=== PATIENT | female | born 1990 | race Caucasian/White ===

== ENCOUNTER 2019-07-15 18:57 | Inpatient (IN) | payer OTHER, SELFPAY ==
[2019-07-15] VITALS (14 sets, daily range): BP systolic 109–161; BP diastolic 40–95; PULSE 83–107; TEMP 36.9; BMI 54.9
--- NOTE | 2019-07-15 18:57 | LDADM ---
This patient, Adelaide Jauregui, was admitted to Labor/Delivery/Recovery 106 on 07/15/19 at 18:57. Plans for labor, pain management and were discussed with patient. Patient/family oriented to hospital policies and general routines including ID bracelet, bed and alarms, visiting hours, pain management, procedures, bathroom and other care routines, personal items, smoking policy, room service/diet and guest tray routines, infant security routines, and visiting hours. Patient/Family are encouraged to report perceived risks to care and to ask questions if they do not understand what they are told or what they should do. See OBIX for further documentation.
[2019-07-15 20:10] LABS: Basophils Absolute Auto 0.1 K/mm3 (0.0-0.1); Basophils Percent Auto 0.4 % (0.2-1.2); Eosinophils Absolute Auto 0.1 K/mm3 (0-0.3); Hematocrit 34.1 % (37.0-47.0); Hemoglobin 11.3 g/dL (12.0-15.0); Immature Granulocyte Percent A 0.7 % (0-0.5); Lymphocytes Absolute Auto 2.38 K/mm3 (0.9-3.2); Lymphocytes Percent Auto 17.6 % (18.3-44.2); Mean Corpuscular HGB Conc 33.1 g/dl (32-36); Mean Corpuscular Hemoglobin 27.3 pg (26-34); Mean Corpuscular Volume 82.4 fl (80-100); Mean Platelet Volume 9.3 fl (7.4-10.4); Monocytes Absolute Auto 1.2 K/mm3 (0.1-0.6); Neutrophils Absolute Auto 9.6 K/mm3 (1.3-6.7); Neutrophils Percent Auto 71.3 % (45.5-73.1); Platelet Count Result 220 k/mm3 (150-375); Red Blood Count 4.14 M/mm3 (4.2-5.4); Red Cell Distribution Width 13.9 % (11.5-14.5); White Blood Count 13.5 K/mm3 (4.5-10.0)
[2019-07-15] MEDS: LACTATED RINGERS 1,000 ML 125 ML IV CONT (20:21)
[2019-07-15] MEDS: DINOPROSTONE 10 MG VAG INSERT VAGINAL (20:22)
[2019-07-15] MEDS: AMPICILLIN 2 GM/NS 100 ML 2 GM/100 ML BAG IVPB (20:22)
[2019-07-15 20:54] LABS: Alanine Aminotransferase 18 U/L (4-35); Albumin Level 3.5 g/dL (3.5-5.1); Alkaline Phosphatase 118 U/L (38-126); Aspartate Amino Transferase 22 U/L (14-36); Bilirubin,Total 0.2 mg/dL (0.2-1.3); Blood Urea Nitrogen 6 mg/dL (7-17); Calcium 8.9 mg/dL (8.4-10.2); Carbon Dioxide 21 mmol/L (22-30); Chloride 103 mmol/L (98-107); Estimated CRCL calculation 202 ml/min; Estimated Glomerular Filt Rate > 60; Glucose 96 mg/dL (65-105); Potassium 3.5 mmol/L (3.4-5.0); Sodium 136 mmol/L (137-145)
[2019-07-15 21:03] LABS: HIV 1/2 Ab P24 Ag Result Negative (Negative)
[2019-07-16] VITALS (144 sets, daily range): BP systolic 100–162; BP diastolic 51–109; PULSE 73–141; TEMP 36.1–36.8; O2SAT 91–100
[2019-07-16] MEDS: AMPICILLIN 1 GM/NS 50 ML 1 GM/50 ML BAG IVPB ×6 (00:24→19:49)
[2019-07-16 09:02] LABS: Rapid Plasma Reagin Non-Reactive (NonReactive)
--- NOTE | 2019-07-16 10:12 | WPDOBADMIT ---
Obstetrics - Admit Note Admission Note: record reviewed. No pertinent additions to the history and/or any subsequent changes in the physical findings that are not consistent with the expected course of the were found. Arom FSE place without difficulty 1-/ /-2 vertex Additions to the history and/or subsequent changes in the physical findings follow. None.
--- NOTE | 2019-07-16 10:45 | WPDANESEPP ---
Anes - Eval Pre Procedure Procedure: labor epidural Date/Time: 07/16/19 10:45 Surgeon: elise Pre Op Diagnosis: Induction of labor Patient Data Age: 28 Gender: F Height: 1.77 m Weight: 171.2 kg Last Vital Signs Temp 36.2 C L 07/16/19 09:54 Pulse 86 07/16/19 10:31 BP 140/89 07/16/19 10:31 Allergies Allergy/AdvReac Type Severity Reaction Status Date / Time Sulfa (Sulfonamide Allergy Mild HIVES Verified 06/26/19 13:33 Antibiotics) Home Medications Medication Instructions Recorded Confirmed Type PNV cmb#95-ferrous fumarate-FA 1 tablet PO DAILY 06/26/19 07/15/19 History [] aspirin [Adult Low Dose Aspirin] 81 mg PO DAILY 06/26/19 07/15/19 History cholecalciferol (vitamin D3) See Rx Instructions .ROUTE .COMPLEX 06/26/19 07/15/19 History [Vitamin D3] Laboratory Tests 07/15/19 07/15/19 07/15/19 20:01 20:01 20:01 WBC 13.5 K/mm3 H K/mm3 (4.5-10.0) RBC 4.14 M/mm3 L M/mm3 (4.2-5.4) Hgb 11.3 g/dL L g/dL (12.0-15.0) Hct 34.1 % L % (37.0-47.0) MCV 82.4 fl fl (80-100) MCH 27.3 pg pg (26-34) MCHC 33.1 g/dl g/dl (32-36) RDW 13.9 % % (11.5-14.5) Plt Count 220 k/mm3 k/mm3 (150-375) MPV 9.3 fl fl (7.4-10.4) Immature Gran % (Auto) 0.7 % H % (0-0.5) Neut % (Auto) 71.3 % % (45.5-73.1) Lymph % (Auto) 17.6 % L % (18.3-44.2) Davis % (Auto) 9.0 % H % (2.6-8.5) Eos % (Auto) 1.0 % % (0-4.4) Baso % (Auto) 0.4 % % (0.2-1.2) Lymph # (Auto) 2.38 K/mm3 K/mm3 (0.9-3.2) Davis # (Auto) 1.2 K/mm3 H K/mm3 (0.1-0.6) Eos # (Auto) 0.1 K/mm3 K/mm3 (0-0.3) Baso # (Auto) 0.1 K/mm3 K/mm3 (0.0-0.1) Abs Immat Gran (auto) 0.10 K/mm3 H K/mm3 (0.00-0.031) Absolute Neuts (auto) 9.6 K/mm3 H K/mm3 (1.3-6.7) Absolute Nucleated RBC 0.0 K/mm3 K/mm3 (0.0-0.012) Nucleated RBC % 0.0 % % (0.0-0.2) Sodium Potassium Chloride Carbon Dioxide BUN Creatinine Estim Creat Clear Calc Estimated GFR Glucose Uric Acid Calcium Total Bilirubin AST ALT Alkaline Phosphatase Total Protein Albumin RPR Non-reactive (NonReactive) HIV 1&2 Ab/P24 Ag 4thGn Negative (Negative) Blood Type Antibody Screen 07/15/19 07/15/19 20:01 20:31 WBC RBC Hgb Hct MCV MCH MCHC RDW Plt Count MPV Immature Gran % (Auto) Neut % (Auto) Lymph % (Auto) Davis % (Auto) Eos % (Auto) Baso % (Auto) Lymph # (Auto) Davis # (Auto) Eos # (Auto) Baso # (Auto) Abs Immat Gran (auto) Absolute Neuts (auto) Absolute Nucleated RBC Nucleated RBC % Sodium 136 mmol/L L mmol/L (137-145) Potassium 3.5 mmol/L mmol/L (3.4-5.0) Chloride 103 mmol/L mmol/L (98-107) Carbon Dioxide 21 mmol/L L mmol/L (22-30) BUN 6 mg/dL L mg/dL (7-17) Creatinine 0.60 mg/dL L mg/dL (0.7-1.0) Estim Creat Clear Calc 202 ml/min ml/min Estimated GFR > 60 (59 - ) Glucose 96 mg/dL mg/dL (65-105) Uric Acid 4.0 mg/dL mg/dL (2.5-7.5) Calcium 8.9 mg/dL mg/dL (8.4-10.2) Total Bilirubin 0.2 mg/dL mg/dL (0.2-1.3) AST 22 U/L U/L (14-36) ALT 18 U/L U/L (4-35) Alkaline Phosphatase 118 U/L U/L (38-126) Total Protein 7.0 g/dL g/dL (6.3-8.2) Albumin 3.5 g/dL g/dL (3.5-5.1) RPR HIV 1&2 Ab/P24 Ag 4th Blood Typ
[2019-07-16] MEDS: LACTATED RINGERS 1,000 ML 125 ML IV CONT ×3 (16:11→23:00)
[2019-07-17] VITALS (259 sets, daily range): BP systolic 100–151; BP diastolic 45–99; PULSE 73–138; RESP 12–25; TEMP 36.3–37.4; O2SAT 94–100
[2019-07-17] MEDS: AMPICILLIN 1 GM/NS 50 ML 1 GM/50 ML BAG IVPB ×4 (04:00→11:56)
--- NOTE | 2019-07-17 09:11 | PM.OBPNVD ---
OB - PN: Subj Subjective Date/time seen: 07/17/19 09:11 Doing okay this am reviewed labor so far. desires to continue. OB - PN: Obj Data Labs CBC & Chem 7: 07/15/19 20:01 07/15/19 20:31 OB - PN A/P Time Spent With Patient Time: Total time spent is greater than 50% in coordination of care (as documented) at patient's floor/unit and/or counseling patient:
[2019-07-17] MEDS: LACTATED RINGERS 1,000 ML 125 ML IV CONT (10:09)
--- NOTE | 2019-07-17 14:00 | PM.IMHP ---
H&P: HPI History of Present Illness Chief complaint: Induction of labor Narrative: Adelaide Jauregui is a 28 year old female @ 39 weeks IOL.. She presented for a cervidil and pitocin. Patient rogression to 6 cm after 36 hours with adequate contraction pattern. Review of Systems Review of Systems: All systems reviewed & are unremarkable except as noted in HPI and below PMFSH Past Medical History Medical History Scoliosis Super obesity Family History Family History Father Depression Hypertension Grandparent Breast cancer Social History Social History Smoking status: Never smoker Substance use: never Spiritual care concerns: No Meds Home Medications and Allergies Home Medications Medication Instructions Recorded Confirmed Type PNV cmb#95-ferrous fumarate-FA 1 tablet PO DAILY 06/26/19 07/15/19 History [] aspirin [Adult Low Dose Aspirin] 81 mg PO DAILY 06/26/19 07/15/19 History cholecalciferol (vitamin D3) See Rx Instructions .ROUTE .COMPLEX 06/26/19 07/15/19 History [Vitamin D3] Allergies Allergy/AdvReac Type Severity Reaction Status Date / Time Sulfa (Sulfonamide Allergy Mild HIVES Verified 06/26/19 13:33 Antibiotics) Vital Signs Vital Signs - 24 hr 07/16/19 14:01 07/16/19 14:31 07/16/19 15:01 Temperature Pulse Rate 86 79 91 Blood Pressure 146/90 H 148/84 H 148/85 H Pulse Oximetry 07/16/19 15:31 07/16/19 15:56 07/16/19 16:01 Temperature 36.6 C Pulse Rate 92 96 Blood Pressure 138/82 148/91 H Pulse Oximetry 100 100 07/16/19 16:06 07/16/19 16:11 07/16/19 16:16 Temperature Pulse Rate Blood Pressure Pulse Oximetry 99 100 100 07/16/19 16:21 07/16/19 16:26 07/16/19 16:31 Temperature Pulse Rate 95 Blood Pressure 140/93 H Pulse Oximetry 100 99 99 07/16/19 16:36 07/16/19 16:41 07/16/19 16:46 Temperature Pulse Rate Blood Pressure Pulse Oximetry 99 99 99 07/16/19 16:51 07/16/19 16:56 07/16/19 17:01 Temperature Pulse Rate 85 Blood Pressure 146/95 H Pulse Oximetry 100 98 100 07/16/19 17:11 07/16/19 17:16 07/16/19 17:21 Temperature Pulse Rate Blood Pressure Pulse Oximetry 100 99 100 07/16/19 17:26 07/16/19 17:31 07/16/19 17:36 Temperature Pulse Rate 89 Blood Pressure 147/81 H Pulse Oximetry 100 100 100 07/16/19 17:41 07/16/19 17:46 07/16/19 17:51 Temperature Pulse Rate Blood Pressure Pulse Oximetry 100 99 99 07/16/19 17:56 07/16/19 18:01 07/16/19 18:06 Temperature Pulse Rate 96 Blood Pressure 125/80 Pulse Oximetry 100 100 100 07/16/19 18:11 07/16/19 18:12 07/16/19 18:16 Temperature 36.8 C Pulse Rate Blood Pressure Pulse Oximetry 100 100 07/16/19 18:21 07/16/19 18:24 07/16/19 18:26 Temperature Pulse Rate 111 H 112 H Blood Pressure 145/83 H 162/81 H Pulse Oximetry 100 100 07/16/19 18:28 07/16/19 18:31 07/16/19 18:32 Temperature Pulse Rate 105 H 93 Blood Pressure 153/79 H 118/75 Pulse Oximetry 99 07/16/19 18:34 07/16/19 18:36 07/16/19 18:37 Temperature Pulse Rate 88 89 Blood Pressure 130/80 136/76 Pulse Oximetry 100 07/16/19 18:38 07/16/19 18:40 07/16/19 18:43 Temperature Pulse Rate 92 89 Blood Pressure 130/66 126/65 Pulse Oximetry 100 100 07/16/19 18:46 07/16/19 18:48 07/16/19 18:49 Temperature Pulse Rate 90 92 Blood Pressure 128/68 129/70 Pulse Oximetry 100 07/16/19 18:52 07/16/19 18:53 07/16/19 18:55 Temperature Pulse Rate 102 H 95 Blood Pressure 126/68 131/83 Pulse Oximetry 100 07/16/19 18:58 07/16/19 19:03 07/16/19 19:08 Temperature Pulse Rate 109 H Blood Pressure 131/109 H Pulse Oximetry 99 100 100 07/16/19 19:13 07/16/19 19:16 07/16/19
--- NOTE | 2019-07-17 14:52 | PM.OBPRVD ---
OB - Delivery Note Procedure Delivery date: 07/17/19 Procedure: primary ltcs Intrapartal events: Prolonged Labor > 20 hours Induction method: AROM and per pitocin protocol Delivery monitor: external FHT, external uterine, internal FHT and internal uterine Route of delivery: Estimated blood loss (mL): 480 Anesthesia type: Epidural Disposition: floor [place] Baby Date of : 07/17/19 Time of : 14:22 Weeks of gestation at delivery: 39 Infant gender: Female Weight (pounds): 6 Weight (ounces): 12 presentation: vertex position: Right Occiput Posterior Placenta delivery description: Spontaneous cord vessel description: 3 Vessels and Clamped/Cut score one minute: 9 score five minutes: 9
--- NOTE | 2019-07-17 16:46 | OP_ITS ---
DATE OF PROCEDURE: 07/17/2019 PREOPERATIVE DIAGNOSIS: Arrest of descent. POSTOPERATIVE DIAGNOSIS: Arrest of descent. PROCEDURE PERFORMED: Primary low-transverse section. ANESTHESIA: Epidural. ESTIMATED BLOOD LOSS: 180 cc. FINDINGS: Female infant, ROP position, vertex presentation, weight 612, Apgars 9, 9. DESCRIPTION OF PROCEDURE: The patient was placed in a supine position with a leftward tilt, prepared and draped in normal sterile fashion. A Pfannenstiel skin incision made with a scalpel, carried down to the underlying layer of fascia. This fascial incision was then extended bilaterally with Tellez scissors. Superior aspect of the incision was grasped with Jose clamps, elevated off the rectus muscles. Inferior aspect of the incision was grasped with Jose clamps and elevated off the rectus muscles. The rectus muscles were in the midline. Peritoneum was entered bluntly. Bladder blade was inserted. The lower uterine segment was incised in a transverse fashion with a scalpel and carried down to the sac and then small incision was made. The incision was extended bluntly. The head was delivered atraumatically. The cord was clamped and cut. The fetus was handed off to the waiting nurse. Placenta was delivered spontaneously. Cord blood and cord gases were obtained. The uterus was cleared of all clots and debris, and the uterine incision was closed with 0 Monocryl in a running locked fashion. A 2nd layer of the same suture was used to imbricate this incision. The gutters were cleared of all clots and debris. The muscles were examined. Hemostasis noted. The fascia was closed with 0 Vicryl suture. Subcutaneous tissue was irrigated and closed with 3-0 plain gut. Skin was closed with 4-0 Vicryl on a Scott needle. Layer of Dermabond was placed over the incision. Sponge, lap, and needle counts were correct x2. D I MT: Felix
--- NOTE | 2019-07-17 18:15 | PC.NURSE ---
Patient transferred to post room #282 per stretcher. Support person present. Oriented to unit, room, information board, rooming in, admission packet and security measures. Patient verbalizes understanding.
[2019-07-17] MEDS: IBUPROFEN 600 MG TABLET PO (19:15)
[2019-07-17] MEDS: DEXTROSE 5%/0.45% SOD CHL 1,000 ML 125 ML IV CONT (19:30)
[2019-07-18] MEDS: IBUPROFEN 600 MG TABLET PO ×5 (00:45→22:21)
[2019-07-18 03:55] VITALS: BP 134/77; PULSE 95; RESP 12; TEMP 36.1
[2019-07-18 05:43] LABS: Basophils Absolute Auto 0.1 K/mm3 (0.0-0.1); Basophils Percent Auto 0.4 % (0.2-1.2); Eosinophils Absolute Auto 0.1 K/mm3 (0-0.3); Eosinophils Percent Auto 0.6 % (0-4.4); Hematocrit 31.4 % (37.0-47.0); Immature Granulocyte Absolute 0.14 K/mm3 (0.00-0.031); Immature Granulocyte Percent A 0.7 % (0-0.5); Lymphocytes Absolute Auto 1.96 K/mm3 (0.9-3.2); Lymphocytes Percent Auto 9.8 % (18.3-44.2); Mean Corpuscular HGB Conc 31.8 g/dl (32-36); Mean Corpuscular Hemoglobin 27.5 pg (26-34); Mean Corpuscular Volume 86.3 fl (80-100); Mean Platelet Volume 9.9 fl (7.4-10.4); Monocytes Absolute Auto 1.9 K/mm3 (0.1-0.6); Monocytes Percent Auto 9.5 % (2.6-8.5); Neutrophils Absolute Auto 15.8 K/mm3 (1.3-6.7); Platelet Count Result 201 k/mm3 (150-375); Red Blood Count 3.64 M/mm3 (4.2-5.4); Red Cell Distribution Width 14.5 % (11.5-14.5)
[2019-07-18] MEDS: DOCUSATE SODIUM 100 MG CAPSULE PO ×3 (07:28→15:23)
[2019-07-18] MEDS: MULTIVIT/MIN/PREN/FOL AC/IRON TABLET 1 TAB PO ×2 (07:28→08:46)
[2019-07-18] MEDS: LANOLIN (LANSINOH) 7.5 GM CREAM 1 APPLIC TOPICAL (07:29)
[2019-07-18] MEDS: SIMETHICONE 80 MG TAB.CHEW PO ×2 (07:29→15:25)
[2019-07-18 08:00] VITALS: BP 130/76; PULSE 100; PULSE 76; RESP 18; TEMP 36.4; O2SAT 100
--- NOTE | 2019-07-18 08:56 | WPDANLDPN2 ---
Anes-Prog Note L&D Date/Time: 07/18/19 08:56 Comfortable throughout: labor and delivery Neuraxial method: epidural Epidural/Spinal procedure site: clean & non-tender Neuro status: Neuro function grossly intact. Cardiovascular status: normal Respiratory status: normal Airway patency: baseline Mental status: baseline Post-Op hydration status: normal Vital Signs: Last Vital Signs Temp 36.1 C L 07/18/19 03:55 Pulse 95 07/18/19 03:55 Resp 12 07/18/19 03:55 BP 134/77 07/18/19 03:55 Pulse Ox 98 07/17/19 20:00 I/O: Intake & Output 07/17/19 07/18/19 07/18/19 23:59 07:59 15:59 Intake Total 1150 1825 Output Total 1200 Balance 1150 625 Post-procedural complaints: none Patient feedback: Patient satisfied with anesthetic care.
--- NOTE | 2019-07-18 08:56 | WPDANLDNPN2 ---
Anes-Prog Note L&D-Neuraxial Date/Time: 07/18/19 08:56 Neuraxial medications: epidural PF morphine Opiod-related complaints: none Patient feedback: Patient satisfied with post-operative pain management.
[2019-07-18 12:30] VITALS: BP 110/68; PULSE 82; RESP 18; TEMP 36.7; O2SAT 100
[2019-07-18 20:13] VITALS: BP 138/65; PULSE 122; RESP 15; TEMP 37; O2SAT 99
[2019-07-19] MEDS: SIMETHICONE 80 MG TAB.CHEW PO ×2 (04:43→09:22)
[2019-07-19] MEDS: IBUPROFEN 600 MG TABLET PO ×2 (04:43→13:39)
[2019-07-19 08:00] VITALS: BP 139/80; PULSE 112; RESP 12; RESP 18; TEMP 36.4; O2SAT 100
--- NOTE | 2019-07-19 08:49 | P.PNOB_ITS ---
OB - PN: Subj Subjective Date/time seen: 07/19/19 08:49 Patient comments: no complaints baby status: doing well [place] feeding status: exclusively breast feeding Narrative: wants to go home today OB - PN: Obj Data Labs CBC & Chem 7: 07/18/19 05:05 07/15/19 20:31 OB - PN A/P Plan day: 2 Plan: discharge home Comments: Plans OCP Time Spent With Patient Time: Total time spent is greater than 50% in coordination of care (as documented) at patient's floor/unit and/or counseling patient: Exam : Bimanual exam- vagina & uterus: other (Uterus firm, nt @U) Other: inc c/d/i
[2019-07-19] MEDS: DOCUSATE SODIUM 100 MG CAPSULE PO (09:22)
[2019-07-19] MEDS: MULTIVIT/MIN/PREN/FOL AC/IRON TABLET 1 TAB PO (09:22)
--- NOTE | 2019-07-19 09:35 | PC.NURSE ---
Mother called out for assist with feeding. Mother would like observation of latch. Mother reports she will supplement at times by choice. Observed mother is able to independently latch with appropriate positioning/alignment. Reviewed positioning/alignment in cross cradle, holding breast in U hold and guided asymmetrical latch on. Discussed rational for each. nursed eagerly, with steady draws and frequent swallowing noted. Reviewed signs of a correct latch, effective nursing and suck swallow ratio. was able to maintain latch without discomfort to mother. Demonstrated how to adjust latch more deeply while feeding. Nipple care reviewed. Mother voiced understanding of information shared. Reviewed infant feeding cues, frequencies, duration of feedings, feeding elimination flow sheet, and signs of adequate intake. Mother is feeding as required and waking infant to feed if needed. Infant is currently meeting outcomes for weight, output, jaundice and feeding frequencies. Mother states she feels confident to continue effective at home. Reviewed transition to breast milk, signs of adequate intake, and engorgement/relief. Instructed to call ICP if intake/output less than required. Reviewed regular medications mother is taking. Information provided per [place]. Reviewed community resources on the [facility] website and in the Mom/Baby guide. Information on outpatient services provided. Mother has no further questions at this time.
[2019-07-20 09:39] VITALS: BP 131/85; PULSE 94; RESP 20; TEMP 36.8
--- NOTE | 2019-08-13 09:29 | PM.DS ---
DS: Diagnosis Admitting Diagnosis Admitting Diagnosis: Encounter for supervision of normal , unspecified, third trimester DS: Summary Time Spent with Patient Time attestation: Total time spent providing and/or coordinating discharge services: Exam Const: General: no acute distress GI: GI Palp: Yes Soft to palpation Discharge Plan Discharge Attending physician on discharge: Joanna Muñoz Discharging Clinician: Emeterio Mullins Patient Disposition: Home, Self-Care Activity: may shower, may drive after 2 weeks and pelvic rest Diet: regular Wound Care Instructions: incision open to air Discharge Instructions: Education: Mom and Baby Guide Given to: Mother Follow-Up: Call your delivering provider's office for an appointment to be seen in: 1 Week Mom and baby [facility] come [facility] for the follow-up appointment. Appointment Date/Time: at What to expect at your follow-up visit: Blood Pressure Check Physical Assessment Call [phone] if you are unable to keep your appointment time. BREAST CARE: 1. Wear a snug supportive bra. 2. For engorgement discomfort: Breast Feeding: A. Apply warm moist washcloths B. Express milk as needed to relieve engorgement C. Wear loose clothing Bottle Feeding: A. May apply ice packs 3. For sore nipples: A. Identify correct latch-on B. Apply warm moist washcloths before and after nursing C. Air dry nipples after nursing D. May apply Lansinoh cream to nipples ABDOMINAL INCISION: (if applicable) 1. Allow incision to air dry 2. Do NOT use lotions for powders on your incision 3. When showering, allow soap and water to run over the incision, but do not wash incision EPISIOTOMY/PERINEAL CARE: 1. Until bleeding stops, use your destiny bottle after urinating 2. Change your pad frequently throughout the day 3. No tub baths until seen by your physician - You may shower ACTIVITY: 1. Rest as much as possible. 2. Do not exercise or lift anything heavier than your baby (such as laundry or other children.) 3. Avoid stairs or driving as much as possible. 4. Do not put anything into the vagina. No douching, tampons, or sexual activity until seen by physician. NOTIFY PHYSICIAN IF YOU HAVE ANY QUESTIONS OR IF ANY OF THE FOLLOWING SYMPTOMS OCCUR: 1. If your incision becomes red, swollen, or more painful than what you have experienced in the hospital. 2. If your vaginal bleeding becomes foul smelling. 3. If your vaginal bleeding becomes more heavy than a period or if your bleeding changes from pink to bright red. However, you may pass an occasional walnut-sized clot once or twice for the first week . 4. If you experience a sharp, shooting pain in you calves. 5. If you discover a hard, reddened area on your breast or if you experience flu-like symptoms. DIET: 1. Eat regular, well-balanced meals. 2. Drink plenty of fluids daily. If , drink to thirst. Patient Instructions: Antibiotic Form Stand Alone Forms: General Discharge Information Follow-up/Referrals: Joanan Muñoz MD [Physician] - 1 Week Discharge Medications: New hydrocodone-acetaminophen 5-325 mg Tablet 1 tab PO Q3H PRN (Reason: Moderate Pain (4-6)) Qty: 15 RF: 0 Slynd 4 mg (28) tablet 4 mg PO DAILY 24 Days Qty: 24 RF: 5 Continued cholecalciferol (vitamin D3) [Vitamin D3] 125 mcg (5,000 unit) Tablet See Rx Instructions .ROUTE .COMPLEX RF: 0 Discontinued aspirin [Adult Low Dose Aspirin] 81 mg Tablet,Delayed Release (Dr/Ec) 81 mg PO DAILY RF: 0 PNV cmb#95-ferrous fumarate-FA [] 28 mg iron- 800 mcg Tablet 1 tablet PO DAILY RF: 0 Date of admission: 07/15/19 18:57 Primary Care Provider: PHYSICIAN,SCALE ATTENDANT Admitting Provider: Emeterio Mullins Discharge Date/Time: 07/19/19 14:03 Benton knowles
== END 2019-07-19 14:03 | disposition home or self-care (01) | DRG 788 ==
LOC: ANHOB2 07-19 10:30 → ANHLDR 07-21 11:29 → ANHOB2 07-21 11:29
PROVIDERS: Admitting Provider Obstetrics & Gynecology; Visit Provider Obstetrics & Gynecology Gynecology
PROC: 10D00Z1 Extraction of Products of Conception, Low, Open Approach (ICD-10-PCS; CPT 59514; principal; 2019-07-17 14:00)
DX: O99.824 Streptococcus B carrier state complicating childbirth (principal); Z3A.39 39 weeks gestation of pregnancy; Z37.0 Single live birth; Z23 Encounter for immunization; O32.8XX0 Maternal care for other malpresentation of fetus, not applicable or unspecified; O62.0 Primary inadequate contractions; O32.4XX0 Maternal care for high head at term, not applicable or unspecified
CPT/HCPCS: 36415; 80053; 84550; 85025; 86592; 86703; 86850; 86900; 86901; A9270; G0432; J0131; J0290; J0690; J2274; J2590; J2795; J7120

== ENCOUNTER → 2021-02-28 15:58 | Outpatient (CLI) | payer OTHER, SELFPAY ==
--- NOTE | ~2021-02-28 | US_ITS ---
EXAMINATION: US OB <= 14 weeks fetus DATE: 02/28/2021 16:18 INDICATION: Viability. TECHNIQUE: Real-time transabdominal pelvic ultrasound was performed. COMPARISON: None. FINDINGS: The uterus measures 12.4 x 7.1 x 7.2 cm. There is an intrauterine gestational sac. The crown ru mp length measures 4.3 cm, which correlates with an estimated gestational age of 11 weeks and 1 day(s ) (+/-) 1 week(s) and 0 day(s). heart motion is identified measuring 167 beats per minute (bpm) by M-mode Doppler. The right ovary is not visualized. The left ovary measures 4.7 x 2.9 x 2.7 cm. Th ere is no free fluid in the pelvis. IMPRESSION: 1. Single living intrauterine gestation with estimated date of delivery of 09/18/2021. Reviewed, dictated and finalized at location A. IMPRESSION: 1. Single living intrauterine gestation with estimated date of delivery of 08/25.
== END ==
PROVIDERS: Visit Provider Nurse Practitioner
DX: Z36.89 Encounter for other specified antenatal screening (principal)
CPT/HCPCS: 76801

== ENCOUNTER → 2021-04-12 14:51 | Outpatient (CLI) | payer OTHER, SELFPAY ==
--- NOTE | ~2021-04-12 | US_ITS ---
EXAMINATION: US OB /maternal detail DATE: 04/12/2021 15:25 INDICATION: Assess anatomy during early second trimester TECHNIQUE: Multiple obstetric sonographic images performed. FINDINGS: There is a single living fetus in vertex presentation. The placenta is anterior with caudal margin 3 .0 cm from the internal cervical os. 4.0 x 1.6 x 2.8 cm hypoechoic region along the inferior margin o f the placenta consistent with a small subchorionic hematoma. Subjectively normal amniotic fluid volu me. heart rate of 151 beats per minute. Many of the structures in the anatomic survey are either nonvisualized were poorly visualized d ue to primarily to gestational age. These include the cerebellum, falx, cava septum pellucidum, ciste rna magna, nuchal fold, upper lip and kidneys. The following anatomy was identified as normal: ventricles and choroid plexus Spine Four-chamber heart view. Clear outflow tract views were unable to be obtained. Diaphragm Stomach Bladder 3 vessel cord and cord insertion Bilateral upper and lower extremities including hands and feet The following biometric data were obtained: BPD: 3.6 cm -> 17 weeks 1 days Head circumference: 13.6 cm -> 17 weeks 0 days Abdominal circumference: 11.7 cm -> 17 weeks 3 days Femur length: 2.3 cm -> 17 weeks 0 days These measurements are concordant. Head circumference to abdominal circumference ratio: 1.15 (normal range 1.07-1.29). Estimated weight: 186 g (+/-) 28 g. or 7 oz. (+/-) 1 oz. IMPRESSION: 1. Single living fetus with vertex presentation with heart rate of 151 bpm. 2. Gestational age by current ultrasound of 17 weeks 1 day(s) (+/-) 1 week 1 day(s) which is concor dant and within 1 day of the previously estimated ultrasound estimated date of delivery (JONAS) of 09/18. Estimated weight is 39th percentile by Hadlock criteria when 09/18/2021 is used as the ED D. Please correlate with clinical information or earlier ultrasounds for most accurate JONAS. 3. Incomplete anatomic survey without evident abnormality as detailed above due to stage of dev elopment, still relatively early in the second trimester. Consider repeat survey in 2 weeks. Reviewed, dictated and finalized at location A. RAM ENGAGEMENT DIRECTOR IMPRESSION: 1. Single living fetus with vertex presentation with heart rate of 151 b pm. 2. Gestational age by current ultrasound of 17 weeks 1 day(s) (+/-) 1 week 1 day(s) which is concordant and within 1 day of the previously estimated ultraso und estimated date of delivery (JONAS) of 09/18/2021. Estimated weight is 39 th percentile by Hadlock criteria when 09/18/2021 is used as the JONAS. Please cor relate with clinical information or earlier ultrasounds for most accurate JONAS. 3. Incomplete anatomic survey without evident abnormality as detailed abo ve due to stage of development, still relatively early in the second trimester. Consider repeat survey in 2 weeks.
== END ==
PROVIDERS: Visit Provider Obstetrics & Gynecology Gynecology
DX: Z36.2 Encounter for other antenatal screening follow-up (principal); Z3A.17 17 weeks gestation of pregnancy
CPT/HCPCS: 76805

== ENCOUNTER → 2021-04-30 14:50 | Outpatient (CLI) | payer OTHER, SELFPAY ==
--- NOTE | ~2021-04-30 | US_ITS ---
EXAMINATION: US OB follow up DATE: 04/30/2021 15:45 INDICATION: Incomplete anatomic survey, second trimester TECHNIQUE: Real-time ultrasound of the pelvis was performed. The interpreting radiologist was not pre sent for the study. COMPARISON: 04/12/2021 FINDINGS: There is a single living fetus in breech presentation. The placenta is anterior and 5.8 cm from the internal cervical os. cardiac activity and movement are noted. heart rate is 150 beats per minute (bpm). The amniotic fluid index is subjectively normal. The ventricles, choro id plexus, cerebellum, cisterna magna, nuchal fold, spine, heart outflow tracts, and kidneys appear n ormal. IMPRESSION: 1. Single living fetus in breech presentation. Remainder of the anatomy appears normal. Reviewed, dictated and finalized at location A. LESS WATCHER IMPRESSION: 1. Single living fetus in breech presentation. Remainder of the anatomy a ppears normal.
== END ==
PROVIDERS: Visit Provider Obstetrics & Gynecology
DX: Z36.2 Encounter for other antenatal screening follow-up (principal); Z3A.00 Weeks of gestation of pregnancy not specified
CPT/HCPCS: 76816

== ENCOUNTER 2021-09-10 10:58 | Outpatient (CLI) | payer BC, OTHER, SELFPAY ==
[2021-09-10 11:50] LABS: Hematocrit 35.1 % (37.0-47.0); Hemoglobin 11.3 g/dL (12.0-15.0); Mean Corpuscular HGB Conc 32.2 g/dl (32-36); Mean Platelet Volume 10.1 fl (7.4-10.4); Platelet Count Result 199 k/mm3 (150-375); Red Blood Count 4.18 M/mm3 (4.2-5.4); Red Cell Distribution Width 15.2 % (11.5-14.5); White Blood Count 9.6 K/mm3 (4.5-10.0)
[2021-09-11 08:00] LABS: Rapid Plasma Reagin Non-Reactive (NonReactive)
== END 2021-09-10 10:59 | disposition home or self-care (01) ==
LOC: ANHLAB 11:01
PROVIDERS: Visit Provider Obstetrics & Gynecology Gynecology
DX: Z01.818 Encounter for other preprocedural examination (principal)
CPT/HCPCS: 36415; 85027; 86592; 86850; 86900; 86901

== ENCOUNTER 2021-09-11 04:55 | Inpatient (IN) | payer BC, OTHER, SELFPAY ==
--- NOTE | 2021-08-20 15:45 | PC.NURSE ---
verified with surgery schedule and patient --C/S with tual ligation on 09/11/21 at 0730 Patient given requisition for lab draw on 09/10/21
[2021-09-11] VITALS (54 sets, daily range): BP systolic 117–150; BP diastolic 51–96; PULSE 49–88; RESP 14–18; TEMP 36.2–36.9; O2SAT 78–100; BMI 55.3
--- NOTE | 2021-09-11 05:14 | LDADM ---
This patient, Adelaide Jauregui, was admitted to Labor/Delivery/Recovery 120 on 09/11/21 at 04:55. Plans for labor, pain management and were discussed with patient. Patient/family oriented to hospital policies and general routines including ID bracelet, bed and alarms, visiting hours, pain management, procedures, bathroom and other care routines, personal items, smoking policy, room service/diet and guest tray routines, infant security routines, and visiting hours. Patient/Family are encouraged to report perceived risks to care and to ask questions if they do not understand what they are told or what they should do. See OBIX for further documentation.
[2021-09-11] MEDS: LACTATED RINGERS 1,000 ML 125 ML IV CONT ×2 (05:40→06:07)
--- NOTE | 2021-09-11 06:27 | P.PNAN_ITS ---
Anes - Initial Pre Proc Eval Procedure: Operation Date: 09/11/21 07:30 Proposed Procedures p Repeat Section with Bilateral Tubal Ligation - Joanna Muñoz MD Date/Time: 09/11/21 06:27 Surgeon: Joanna Muñoz MD Pre Op Diagnosis: C/s Patient Data Age: 30 Gender: F Height: 1.75 m Weight: 170 kg Last Vital Signs Temp 36.8 C 09/11/21 05:26 Pulse 79 09/11/21 06:16 Resp 16 09/11/21 05:26 BP 140/87 09/11/21 06:16 Pulse Ox 99 09/11/21 05:24 Allergies Allergy/AdvReac Type Severity Reaction Status Date / Time Sulfa (Sulfonamide Allergy Mild HIVES Verified 08/20/21 15:32 Antibiotics) Home Medications Medication Instructions Recorded Confirmed Type cholecalciferol (vitamin D3) See Rx Instructions .ROUTE .COMPLEX 06/26/19 09/11/21 History [Vitamin D3] Vitamin 1 tablet PO DAILY 09/11/21 09/11/21 History Patient hx anesthesia problems: none Family hx anesthesia problems: none Results Review: All pre-operative results and documents have been reviewed as part of the pre-operative evaluation. [facility] Past Medical History Medical History (Updated 07/17/19 @ 14:04 by Emeterio Mullins MD) Scoliosis Super obesity Family History Family History Father Depression Hypertension Anxiety Grandparent Breast cancer Type 2 diabetes mellitus Social History Social History Smoking status: Never smoker Second hand tobacco smoke exposure: No Substance use: never Spiritual care concerns: No Anes - Eval Final PreProcedure Day of Procedure 09/11/21 06:27 Patient weight: super morbidly obese Heart: regular rate and rhythm Lungs: clear to auscultation and normal air movement Airway: Mallampati scale class II Neurological: alert and oriented Last oral intake: >/= 8 hours ASA classification: III Emergent: no Anesthetic plan: proceed Anesthesia type and monitoring: regional spinal and standard monitoring Results Review: All pre-operative results and documents have been reviewed as part of the pre-operative evaluation. Informed Consent: The patient's anesthetic plan and its attendant risks and benefits were discussed with the patient/family/POA. Questions were solicited and answers provided to the satisfaction of the patient/family/POA.
--- NOTE | 2021-09-11 06:50 | WPDHPUPDATE1 ---
History and Physical Update Update Date/Time: 09/11/21 06:50 History and Physical has been reviewed, including an updated exam of the patient. There are NO changes in the patient's condition. Risks, benefits, and alternatives have been discussed and questions answered. Patient agrees to proceed with procedure.
--- NOTE | 2021-09-11 06:51 | PM.IMHP ---
H&P: HPI History of Present Illness Date/Time: 09/11/21 06:51 Chief Complaint: Repeat and tubal ligation Narrative: patient is a 30-year-old 2 para 1 admitted at 39 weeks for repeat . Patient's has been uncomplicated. Patient also likes to have permanent sterilization via tubal ligation. The risks of tubal failure with increased ectopic were reviewed. The permanent irreversible nature of tubal ligation was also discussed.Patient declines vaginal after attempt. labs O positive, rubella immune, RPR negative, hepatitis-B surface antigen negative, HIV negative, group B strep positive. [facility] Past Medical History Medical History (Updated 09/11/21 @ 06:54 by Joanna Muñoz MD) Scoliosis Super obesity Surgical History Surgical History (Updated 09/11/21 @ 06:54 by Joanna Muñoz MD) H/O knee surgery History of Family History Family History Father Depression Hypertension Anxiety Grandparent Breast cancer Type 2 diabetes mellitus Social History Social History Smoking status: Never smoker Second hand tobacco smoke exposure: No Substance use: never Spiritual care concerns: No Meds Home Medications and Allergies Home Medications Medication Instructions Recorded Confirmed Type cholecalciferol (vitamin D3) See Rx Instructions .ROUTE .COMPLEX 06/26/19 09/11/21 History [Vitamin D3] Vitamin 1 tablet PO DAILY 09/11/21 09/11/21 History Allergies Allergy/AdvReac Type Severity Reaction Status Date / Time Sulfa (Sulfonamide Allergy Mild HIVES Verified 08/20/21 15:32 Antibiotics) Vital Signs Vital Signs - 24 hr 09/11/21 05:24 09/11/21 05:26 09/11/21 05:30 Temperature 98.3 F Pulse Rate 77 82 88 Respiratory Rate 16 Blood Pressure 146/69 H 146/70 H Pulse Oximetry 99 09/11/21 06:01 09/11/21 06:16 09/11/21 06:31 Temperature Pulse Rate 70 79 80 Respiratory Rate Blood Pressure 140/80 140/87 150/85 H Pulse Oximetry Exam Const: General: healthy appearing and alert Orientation/consciousness: patient oriented x3 GI: GI Palp: Yes Soft to palpation, No Tenderness to palpation present (GI) and Yes Other GI palpation findings present ( fundal height 40cm; heart tones 140s) : External Female Exam: normal external appearance Speculum Exam - Vagina: normal appearance of the vagina and normal vaginal discharge Speculum Exam - Cervix: normal appearance of the cervix Bimanual exam- vagina & uterus: uterine size normal and consistency normal Bimanual Exam- Adnexa, other: normal adnexae and No adnexal tenderness Neuro: General: patient oriented x3 Assessment and Plan Assessment and plan (1) 39 weeks gestation of : Code(s): Z3A.39 - 39 weeks gestation of Status: Acute Assessment and Plan: plan to proceed with repeat section and bilateral tubal ligation (2) Encounter for sterilization: Code(s): Z30.2 - Encounter for sterilization Status: Acute (3) History of : Code(s): Z98.891 - History of uterine scar from previous surgery Status: Inactive
[2021-09-11] MEDS: KETOROLAC 30 MG/ML VIAL (*BKC) IV PUSH (08:15)
--- NOTE | 2021-09-11 08:25 | W.PM.PROC2 ---
Procedure Note - Detailed Date of Procedure 09/11/21 Pre-op Diagnosis Intrauterine at 39 weeks previous scheduled repeat requests sterilization Post-op Diagnosis Other ( left tubal cyst; fibroids) Procedure Performed repeat low transverse section and bilateral tubal ligation excision 4cm left complex tubal cyst; excision right tubal fibroid Surgeon Joanna Muñoz MD Anesthesia Spinal Findings normal-appearing ovaries. Left tube with a 4cm complex tubal cyst. Multiple less than 1cm fibroids on the posterior surface of the fundus. 0.5cm fibroid in the right distal tube Description of Procedure the patient was taken to the operating room and placed under anesthesia in the supine position with a leftward tilt. She was prepped and draped in the usual sterile fashion. Pfannenstiel skin incision was made with a scalpel and carried down to the underlying layer of fascia which was nicked in the midline. The incision was extended laterally with Tellez scissors. [facility] was used to tent the fascia which was then dissected off using sharp dissection. The rectus muscles are in the midline with the [place] high in the incision. There is extensive scar tissue taken down with Bovie cautery. The peritoneum was then entered and the incision extended with blunt traction. The bladder blade is placed and the vesicouterine peritoneum tented and entered with Metzenbaum scissors. The incision was extended laterally and the bladder flap created digitally. The lower uterine segment was incised in a transverse fashion with the scalpel and extended laterally using blunt traction. The infant's head was brought up into the incision on the fully delivered while the minister assistant applied fundal pressure and I guided the vertex. The cord was clamped and cut the handed to the waiting nursery nurse. The placenta is removed using manual traction after cord blood and gases were taken. The placenta is intact. The uterus is exteriorized and cleared of all clots and debris. The uterine incision was closed using 0 Monocryl in a running locked fashion with the same suture used to imbricate. The 1 additional yjcgld-na-nyzsc suture was required over the bladder flap on the right as well as 1 additional kkfmkh-[id number] suture approximately 1cm from the right angle. Attention was then turned to the right tube which was grasped with a [place]. There was noted to be a right fibroid at the distal and. The zeppelin clamp was used to cross clamp the distal 2/3 of the tubes incorporating the fibroid. The tube was excised. The pedicle was tied off using 2 sutures of 0 Vicryl. Good hemostasis is noted. Attention is turned to the left tube where a 4cm complex tubal cyst was noted the proximal tube is excised using a Z clamp to cross clamp and excise the tube the pedicles tied off using Hussain stitch of 0 Vicryl. The distal 2/3 of the tube are crossclamped and the cyst is incorporated and excised as well. Pedicles tied off using 0 Vicryl. The peritoneum between the two tubal excisions is closed using 0 Vicryl in a running stitch for hemostasis. Good hemostasis was then noted. Attention was returned to the incision of the uterus and it was noted to be hemostatic. The uterus was returned to the abdomen and all surgical sites are again inspected carefully. All sites are noted to be hemostatic. The fascia was then closed using 0 Vicryl in a running fashion. Subcutaneous tissues were irrigated made hemostatic using Bovie cautery. Skin is closed using 4-0 Vicryl in a subcuticular fashion. Dermaflex was placed over the incision. Sponge, needle, and instrument counts are correct per the OR staff. Patient was taken to recovery in stable condition. Estimated Blood Loss 425 Drains Yes ( Garcia catheter) Pathology Yes ( bilateral tubal segments with right tubal fibroid and left tubal cyst) Complications No immediate compli
[2021-09-11] MEDS: OXYTOCIN 30 UNITS/NS 500 ML 30 UNITS/500 ML BAG 125 UNITS IV CONT (09:07)
[2021-09-11] MEDS: LORATADINE 10 MG TABLET PO (09:15)
--- NOTE | 2021-09-11 12:09 | OBPPTRN ---
1105 Patient transferred to post room #285 via stretcher. Support person present. Oriented to unit, room, information board, rooming in, admission packet and security measures. Patient verbalizes understanding.
[2021-09-11] MEDS: DEXTROSE 5%/0.45% SOD CHL 1,000 ML 125 ML IV CONT (13:17)
[2021-09-12] MEDS: IBUPROFEN 600 MG TABLET PO ×3 (03:41→19:10)
[2021-09-12] MEDS: HYDROcodone/acetaminophen (*CRX) 5-325 MG TABLET 1 TAB PO ×5 (03:41→19:11)
[2021-09-12 03:49] VITALS: BP 158/82; PULSE 76; RESP 18; TEMP 36.4; O2SAT 97
[2021-09-12 05:07] LABS: Basophils Percent Auto 0.3 % (0.2-1.2); Eosinophils Absolute Auto 0.1 K/mm3 (0-0.3); Eosinophils Percent Auto 0.4 % (0-4.4); Hematocrit 32.9 % (37.0-47.0); Hemoglobin 10.5 g/dL (12.0-15.0); Immature Granulocyte Absolute 0.06 K/mm3 (0.00-0.031); Immature Granulocyte Percent A 0.4 % (0-0.5); Lymphocytes Absolute Auto 2.69 K/mm3 (0.9-3.2); Lymphocytes Percent Auto 19.6 % (18.3-44.2); Mean Corpuscular HGB Conc 31.9 g/dl (32-36); Mean Corpuscular Hemoglobin 27.1 pg (26-34); Mean Corpuscular Volume 84.8 fl (80-100); Mean Platelet Volume 10.9 fl (7.4-10.4); Monocytes Absolute Auto 1.2 K/mm3 (0.1-0.6); Neutrophils Absolute Auto 9.7 K/mm3 (1.3-6.7); Neutrophils Percent Auto 70.3 % (45.5-73.1); Platelet Count Result 203 k/mm3 (150-375); Red Blood Count 3.88 M/mm3 (4.2-5.4); Red Cell Distribution Width 15.5 % (11.5-14.5); White Blood Count 13.7 K/mm3 (4.5-10.0)
--- NOTE | 2021-09-12 07:41 | P.PNOB_ITS ---
OB - PN: Subj Subjective Date/time seen: 09/12/21 07:41 Patient comments: no complaints and pain well controlled baby status: nursing well OB - PN: Obj Data Labs CBC & Chem 7: 09/12/21 03:31 Labs: Laboratory Results - last 24 hr 09/12/21 03:31 WBC 13.7 H RBC 3.88 L Hgb 10.5 L Hct 32.9 L MCV 84.8 MCH 27.1 MCHC 31.9 L RDW 15.5 H Plt Count 203 MPV 10.9 H Immature Gran % (Auto) 0.4 Neut % (Auto) 70.3 Lymph % (Auto) 19.6 Christian % (Auto) 9.0 H Eos % (Auto) 0.4 Baso % (Auto) 0.3 Lymph # (Auto) 2.69 Christian # (Auto) 1.2 H Eos # (Auto) 0.1 Baso # (Auto) 0.0 Abs Immat Gran (auto) 0.06 H Absolute Neuts (auto) 9.7 H Absolute Nucleated RBC 0.0 Nucleated RBC % 0.0 OB - PN A/P Assessment and Plan (1) PIH ( induced hypertension): Code(s): O13.9 - Gestational [-induced] hypertension without significant proteinuria, unspecified trimester Status: Acute Assessment and Plan: Elevated BP since delivery. No sx. Good diuresis. Observe. Plan day: 1 Plan: routine care Time Spent With Patient Time: Total time spent is greater than 50% in coordination of care (as documented) at patient's floor/unit and/or counseling patient: Exam Narrative: inc c/d/i : Bimanual exam- vagina & uterus: other (Uterus firm, nt @U)
[2021-09-12 07:50] VITALS: BP 132/68; PULSE 65; RESP 16; TEMP 36.9; O2SAT 99
[2021-09-12] MEDS: MULTIVIT/MIN/PREN/FOL AC/IRON TABLET 1 TAB PO (07:52)
--- NOTE | 2021-09-12 07:53 | WPDANLDPN2 ---
Anes-Prog Note L&D Date/Time: 09/12/21 07:53 Comfortable throughout: section Neuraxial method: spinal Epidural/Spinal procedure site: clean & non-tender Neuro status: Neuro function grossly intact. Cardiovascular status: normal Respiratory status: normal Airway patency: baseline Mental status: baseline Post-Op hydration status: normal Vital Signs: Last Vital Signs Temp 36.4 C L 09/12/21 03:49 Pulse 76 09/12/21 03:49 Resp 18 09/12/21 03:49 BP 158/82 H 09/12/21 03:49 Pulse Ox 97 09/12/21 03:49 Pain score (VAS): 3 I/O: Intake & Output 09/11/21 09/11/21 09/12/21 15:59 23:59 07:59 Intake Total 1280 1400 100 Output Total 775 3400 400 Balance 505 -9538 -300 Post-procedural complaints: none Patient feedback: Patient satisfied with anesthetic care.
--- NOTE | 2021-09-12 07:54 | WPDANLDNPN2 ---
Anes-Prog Note L&D-Neuraxial Date/Time: 09/12/21 07:54 Neuraxial medications: intrathecal PF morphine Opiod-related complaints: none Patient feedback: Patient satisfied with post-operative pain management.
--- NOTE | 2021-09-12 11:22 | PC.NURSE ---
[id number] Introductions were made, then consulted with patient to assess needs related to . Mother led the conversation with her experience feeding her so far managing phototherapy as well. Mother works well with her infant and demonstrates knowledge of . Encouraged understanding of the benefits of skin to skin (unwrapping and placing vertically on her chest), responsive feeding and how to watch for early feeding signs, frequency of feeding on demand about every 8-12 times in 24 hours (every 2-3 hours), milk production, duration of feeding, signs of adequate intake/output and how to record on the feeding sheet. Reviewed positioning tummy to tummy with ear, shoulder, hip alignment, supporting the breast, asymmetrical latch (off-center), and leading with the chin with a big open side gape. Infant latched optimally to the right breast in football position. Education given to mother of how to visualize suck/swallow ratios and drinking at the breast. Infant was able to maintain latch without discomfort to mother. Nipple care reviewed with optimal latch and good positioning. Reviewed good handwashing when or touching the breast/nipples to prevent infection. Resources used to facilitate learning were used with the visual handouts/mom and baby guide. Discussed stimulating to breastfeed instead of sleeping through a feeding. Mother voiced understanding of responsive feedings, stimulating with skin to skin, hand expressed colostrum, touch, talking to to encourage if it has been 2 -3 hours since the start of the last , to call if does not latch or there is discomfort with . Reported to the primary RN.
[2021-09-12] MEDS: SIMETHICONE 80 MG TAB.CHEW PO (14:22)
[2021-09-12] MEDS: DOCUSATE SODIUM 100 MG CAPSULE PO (16:14)
[2021-09-12 18:50] VITALS: BP 149/79; PULSE 72; RESP 18; TEMP 37.2
[2021-09-12] MEDS: LANOLIN (LANSINOH) 7.5 GM CREAM 1 APPLIC TOPICAL (19:10)
[2021-09-12 20:30] VITALS: BP 142/81; PULSE 72
[2021-09-12] MEDS: HYDROcodone/acetaminophen (*CRX) 10-325 MG TABLET 1 TAB PO (22:39)
[2021-09-13] MEDS: IBUPROFEN 600 MG TABLET PO ×2 (01:40→09:06)
[2021-09-13] MEDS: HYDROcodone/acetaminophen (*CRX) 5-325 MG TABLET 1 TAB PO ×3 (01:41→11:32)
--- NOTE | 2021-09-13 07:18 | P.PNOB_ITS ---
OB - PN: Subj Subjective Date/time seen: 09/13/21 07:18 Interval history: No PIH sx Patient comments: no complaints and pain well controlled [place] baby status: doing well OB - PN: Obj Data Labs CBC & Chem 7: 09/12/21 03:31 OB - PN A/P Assessment and Plan (1) PIH ( induced hypertension): Code(s): O13.9 - Gestational [-induced] hypertension without significant proteinuria, unspecified trimester Status: Acute Assessment and Plan: No Sx. BP stable. Follow up 1 wk Plan day: 2 Plan: routine care, discharge home and other (follow up 1 wk) Time Spent With Patient Time: Total time spent is greater than 50% in coordination of care (as documented) at patient's floor/unit and/or counseling patient: Exam Narrative: inc c/d/i : Bimanual exam- vagina & uterus: other (Uterus firm, nt @U)
--- NOTE | 2021-09-13 07:19 | PM.OBDSVD ---
DS: Admitting Diagnosis Discharge Date 09/13/21 Admitting Diagnosis IUP 39 wks for repeat csection and tubal ligation DS: Discharge Diagnosis Discharge Diagnosis (1) delivery delivered: Code(s): O82 - Encounter for delivery without indication Status: Acute (2) PIH ( induced hypertension): Code(s): O13.9 - Gestational [-induced] hypertension without significant proteinuria, unspecified trimester Status: Acute (3) S/P tubal ligation: Code(s): Z98.51 - Tubal ligation status Status: Acute OB - DS: Summary OB Procedures : Ultrasound OB Procedures Intrapartum: low cervical, transverse and Tubal ligation (and tubal cyst excision; tubal fibroid excision) OB Procedures: : None Peripartum Data Delivery Method: Section Procedures: Procedures Operation Date: 09/11/21 07:30 Actual Procedure Side Surgeon p Repeat Section with Bilateral Tubal Ligation Bilateral Joanna Muñoz MD Status at Discharge Functional status at discharge: independent ambulation Overall status at discharge: patient is progressing back to baseline Time Spent with Patient Time attestation: Total time spent providing and/or coordinating discharge services: DS: Data Data Completed and Pending Pending studies at discharge: Pending at discharge 09/11/21 07:55 Surgical [PTH] Routine Surgical [PTH] Routine Discharge Plan Discharge Attending physician on discharge: Joanna Muñoz Discharging Clinician: Joanna Muñoz Anticipated Discharge Date/Time: 09/13/21 07:21 Patient Disposition: Home, Self-Care Activity: may shower, may drive after 2 weeks and pelvic rest Diet: regular Wound Care Instructions: incision open to air Patient Instructions: Antibiotic Form Stand Alone Forms: General Discharge Information Follow-up/Referrals: Joanna Muñoz MD [Physician] - 1 Week (and 6 wk) Discharge Medications: New hydrocodone-acetaminophen 5-325 mg Tablet 1 tablet PO Q4H PRN (Reason: Moderate Pain (4-6)) Qty: 30 RF: 0 Continued cholecalciferol (vitamin D3) [Vitamin D3] 125 mcg (5,000 unit) Tablet See Rx Instructions .ROUTE .COMPLEX RF: 0 Vitamin 1 tablet 1 tablet PO DAILY RF: 0 Date of admission: 09/11/21 04:55 Primary Care Provider: PHYSICIAN,DEBT RECOVERY OFFICER Admitting Provider: Joanna Muñoz Attending physician on admission: Joanna Muñoz Condition: Stable
[2021-09-13 07:50] VITALS: BP 135/77; PULSE 64; RESP 18; TEMP 36.6; O2SAT 100
[2021-09-13] MEDS: DOCUSATE SODIUM 100 MG CAPSULE PO (09:06)
[2021-09-13] MEDS: MULTIVIT/MIN/PREN/FOL AC/IRON TABLET 1 TAB PO (09:06)
--- NOTE | 2021-09-13 14:10 | PC.NURSE ---
[id number] Consulted with patient to assess needs related to . Mother led conversation with her experience with feeding baby so far. Mother works well with her with encouragement. Reviewed working with , breast, nipples and how to protect the nipples with an optimal deep latch, good positioning, and good hand washing. Encouraged understanding the benefits of skin to skin, responding to feeding cues, frequencies of feeding 8-12 times in 24 hours (approximately 2-3 hours), duration of feedings, milk production, intake/output feeding sheet and signs of adequate intake encouraging swallowing at the breast. Reviewed positioning and alignment, supporting breast, off-centered (asymmetrical latch) and leading with the chin with big open wide gape. Mother visualized the early feeding cues. Mother voiced understanding of the education shared, calling for assistance if the infant does not latch or if there is discomfort with . Reported to the primary RN.
[2021-09-14 10:34] VITALS: BP 138/79; PULSE 63; RESP 20; TEMP 37.1; O2SAT 100
== END 2021-09-13 14:20 | disposition home or self-care (01) | DRG 788 ==
LOC: ANHLDR 04:58 → ANHOB2 11:31
PROVIDERS: Admitting Provider Obstetrics & Gynecology Gynecology; Visit Provider Obstetrics & Gynecology Gynecology
PROC: 10D00Z1 Extraction of Products of Conception, Low, Open Approach (ICD-10-PCS; CPT 59514; principal; 2021-09-11 07:30)
DX: O34.211 Maternal care for low transverse scar from previous cesarean delivery (principal); Z37.0 Single live birth; Z3A.39 39 weeks gestation of pregnancy; O99.824 Streptococcus B carrier state complicating childbirth; Z30.2 Encounter for sterilization; O99.892 Other specified diseases and conditions complicating childbirth; D25.9 Leiomyoma of uterus, unspecified; N83.8 Other noninflammatory disorders of ovary, fallopian tube and broad ligament; O13.4 Gestational [pregnancy-induced] hypertension without significant proteinuria, complicating childbirth
CPT/HCPCS: 36415; 85025; 88302; A9270; J0131; J1100; J1885; J2274; J2370; J2405; J2590; J7120

== ENCOUNTER → 2022-08-06 07:58 | Outpatient (CLI) | payer BC, OTHER, SELFPAY ==
--- NOTE | ~2022-08-06 | XR_ITS ---
EXAMINATION: [id number] DATE: 08/06/2022 08:10 INDICATION: Lateral left foot pain 3 months post injury TECHNIQUE: Standing dorsoplantar, two oblique and lateral views of the left foot were obtained. COMPARISON: None. FINDINGS: Mild pes planus with some flattening of the longitudinal arch. Alignment is otherwise normal. No frac ture. Mild osteoarthritis at the first metatarsophalangeal joint, the calcaneocuboid and a few interp halangeal joints. Minimal osteoarthritis at a few of the tarsal metatarsal joints. No erosions. Small Achilles calcaneal spur. Small heterotopic ossicle along the dorsal margin of the talonavicular rayshawn culation. Soft tissues are unremarkable with no ankle joint effusion. IMPRESSION: 1. 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 Reviewed, dictated and finalized at location L.
== END ==
PROVIDERS: PCP Clinical Nurse Specialist; Visit Provider Clinical Nurse Specialist
DX: S99.929A Unspecified injury of unspecified foot, initial encounter (principal); M79.672 Pain in left foot; M21.42 Flat foot [pes planus] (acquired), left foot; M19.072 Primary osteoarthritis, left ankle and foot
CPT/HCPCS: 73630

== ENCOUNTER 2022-09-23 14:37 | Outpatient (CLI) | payer BC, OTHER, SELFPAY ==
--- NOTE | ~2022-09-23 | MR_ITS ---
EXAMINATION: MR foot LT wo con DATE: 09/23/2022 15:31 INDICATION: Worsening left foot pain post injury TECHNIQUE: Magnetic resonance imaging (MRI) of the left fore/mid foot was performed without intraveno us contrast. Sequences included sagittal T1-weighted FSE, sagittal fluid sensitive FSE STIR, coronal PD-weighted FS FSE, coronal T1-weighted FSE, axial PD-weighted FS FSE, and axial PD-weighted FSE. COMPARISON: Left foot radiographs dated 08/06/2022 FINDINGS: Bone alignment is normal. There is normal bone marrow signal throughout. No fracture or pathologic ma rrow replacing process. Mild osteoarthritis at the first metatarsophalangeal and at the tarsal metata rsal joints. There are small ganglion cysts arising from the junction of the articulation between the cuneiforms and the navicula. No joint effusions. The Lisfranc ligament complex, the intertarsal and intermetatarsal ligaments as well as the collateral ligament complexes at the metatarsophalangeal and interphalangeal joints all appear intact. There is moderate fatty atrophy as well as feathery muscul ar edema involving the abductor digiti minimi muscle. Remaining musculature in the left foot includin g of the quadratus plantae and flexor digitorum brevis muscles which also November the lateral planta r nerve which suggests changes in the abductor digiti minimi muscle may be related to prior trauma. IMPRESSION: 1. Moderate fatty atrophy and feathery edema throughout the abductor digiti minimi muscle belly which could be related to prior trauma/muscle strain, denervation change or other chronic nonspecific myop athy. Reviewed, dictated and finalized at location B. IMPRESSION: 1. Moderate fatty atrophy and feathery edema throughout the abductor digiti min imi muscle belly which could be related to prior trauma/muscle strain, denervat ion change or other chronic nonspecific myopathy.
== END 2022-09-23 14:38 | disposition home or self-care (01) ==
PROVIDERS: PCP Clinical Nurse Specialist; Visit Provider Clinical Nurse Specialist
DX: S99.929A Unspecified injury of unspecified foot, initial encounter (principal); X58.XXXA Exposure to other specified factors, initial encounter
CPT/HCPCS: 73718

== ENCOUNTER 2024-07-20 10:39 | Outpatient (CLI) | payer OTHER, SELFPAY ==
--- NOTE | ~2024-07-20 | US_ITS ---
EXAMINATION: US pelvic complete DATE: 07/20/2024 11:01 INDICATION: Excessive and frequent menstruation. TECHNIQUE: Multiple transabdominal sonographic images of the pelvis were obtained. COMPARISON: None. FINDINGS: The uterus measures 10.5 x 4.7 x 7.0 cm. There is no free fluid in the pelvis. The endometrial comple x measures 7 mm in thickness. The right ovary measures 3.9 x 2.8 x 3.4 cm. The left ovary measures 2. 4 x 1.5 x 2.6 cm. There is normal vascular flow in the ovaries. IMPRESSION: 1. Normal pelvis. Reviewed, dictated and finalized at location A. WORK FOLDER IMPRESSION: 1. Normal pelvis.
== END 2024-07-20 10:40 | disposition home or self-care (01) ==
PROVIDERS: PCP Nurse Practitioner Women's Health; Visit Provider Nurse Practitioner Women's Health
DX: N92.0 Excessive and frequent menstruation with regular cycle (principal); N94.6 Dysmenorrhea, unspecified
CPT/HCPCS: 76856

== ENCOUNTER 2024-08-02 00:20 | Day surgery (SDC) | payer OTHER, SELFPAY ==
[2024-07-22 08:55] VITALS: BMI 51.0
--- NOTE | 2024-07-22 09:01 | PC.NURSE ---
Report to the Outpatient Waiting Room, entrance under the green pavilion located off [facility], at time _0700_ on date _08/02/24. Planned Procedure Time: _0900_.? Time changes happen often and if your time is changed the preop area will call you the afternoon before. - You and your visitor will be asked to self-screen and do not enter if you have any COVID symptoms. Please call surgeon if you need to reschedule. - A mask is optional within the hospital at this time. Patients may have clear liquids (water, carbonated beverages, clear teas, apple juice) until 3 hours prior to surgery with a maximum of 20 ounces. - No food from midnight until time of surgery and no smoking, or chewing tobacco (or any form of nicotine). No chewing gum, candy or mints. - Infants may have breast milk until 4 hours before surgery, infant formula 6 hours prior to surgery. - Children will be allowed to drink immediately following surgery.? If applicable, please bring a bottle or sippy cup to assist with drinking. Juice, water, soda, and popsicles are readily available.? For infants on formula, please bring formula the day of surgery.? Pacifiers are allowed. Take only the following medications with a SIP of water on the morning of surgery: NONE DO NOT STOP ANY OF YOUR OTHER PRESCRIPTION MEDICATIONS PRIOR TO SURGERY EXCEPT THE FOLLOWING Hold all vitamins and supplements for 3 days per anesthesiologist. Medications to discontinue per physician NONE Date to take last dose Please no make-up, nail macedonian, hairspray, perfume, deodorant, or body powder the day of surgery.? No jewelry (including any body piercings) or valuables the day of surgery, leave them at home.? Please take a shower or bath the night before, or the morning of, surgery with an antibacterial soap.? Wear comfortable, loose fitting clothing.? Children are encouraged to wear pajamas. - Jewelry must be removed prior to entering the operating room.? Rings and piercings that are not removed may be cut off. - The hospital will not accept responsibility for valuables.? - Please leave all valuables, including medications, at home the day of surgery. If you are going home after surgery, a licensed delivery driver must drive you home.? - NO public transportation without another adult if you receive anesthesia. - We recommend that an adult stay with you for 24 hours following discharge. - We also recommend that you do not drive, make important decision, drink alcoholic beverages, or take any drugs that were not prescribed by your health care provider for at least 24 hours after your discharge time. For Pediatric surgeries, we recommend two adults accompany the child home. Follow any additional instructions given to you from your surgeon. Telephone instructions given to __PATIENT and asked if any additional questions and then verbalized understanding. Patient advised to call surgeon office or pre surgery nurse liaison [phone] if any additional questions.
--- OUTSIDE RECORDS SUMMARY | 2024-08-02 00:23 | XMS_ITS | Referral Summary ---
Author Organization [facility] Address [address] [place] [address] Care Team Providers Care Type Proof Reproducer Name Role Phone Unavailable Primary Care Provider Unavailabl e Source Comments [facility],non-owned Affiliates and Associated Physician Practices is amultiple site organization consisting of ambulatory clinics and hospital sitesin [place], [place], [place]. This disclosure is being madepursuant to the Care Everywhere program and may not contain all information available regarding this patient. Last updated 18.[facility] Allergies Active Allergy Reactions Criticality Noted Date Comments Sulfa Drugs Rash Medium 04/02/2016 Medications * Be aware that medications may not be up to date on this document. Alwaysverify current medications with the patient. Medication Sig Dispensed Refills Start Date End Date Status NORTREL 1/35, 28, 1-35 MG-MCG tablet 06/12/2016 Active Social History Tobacco Use Types Packs/Day Years Used Date Smoking Tobacco: Never Sex and Gender Information Value Date Recorded Sex Assigned at Not on file Gender Identity Not on file Sexual Orientation Not on file Last Filed Vital Signs Vital Sign Reading Time Taken Comments Blood Pressure 124/80 10/08/2016 9:01 AM CDT Pulse 84 10/08/2016 9:01 AM CDT Temperature 37.1 C (98.7 F) 10/08/2016 9:01 AM CDT Respiratory Rate 16 06/22/2016 10:29 AM AUTOCAD Oxygen Saturation - - Inhaled Oxygen Concentration - - Weight 136.1 kg (300 lb) 10/08/2016 9:01 AM CDT Height 177.8 cm (5' 10 ) 10/08/2016 9:01 AM CDT Body Mass Index 43.05 10/08/2016 9:01 AM CDT Plan of Treatment Not on file Adelaide Jauregui Personal/Famil y Self [address] [place] [address]
--- OUTSIDE RECORDS SUMMARY | 2024-08-02 00:23 | XMS_ITS | Clinical Summary ---
Author Organization [facility] Address [address] [address] Care Team Providers Care Public Opinion Survey Taker Name Role Phone Unavailable Primary Care Provider Unavailabl e Source Comments [facility],non-owned Affiliates and Associated Physician Practices is amultiple site organization consisting of ambulatory clinics and hospital sitesin [place], [place], [place] and [place]. This disclosure is being madepursuant to the Care Everywhere program and may not contain all information available regarding this patient. Last updated 18.[facility] Allergies Active Allergy Reactions Criticality Noted Date [...] CDT Respiratory Rate 16 06/22/2016 10:29 AM BINGO ATTENDANT Oxygen Saturation - - Inhaled Oxygen Concentration - - Weight 136.1 kg (300 lb) 10/08/2016 9:01 AM CDT Height 177.8 cm (5' 10 ) 10/08/2016 9:01 AM CDT Body Mass Index 43.05 10/08/2016 9:01 AM CDT Plan of Treatment Health Maintenance Due Date Last Done Comments PAP SMEAR 1990 HIV SCREENING 2004 HEPATITIS C SCREENING 11/24/2007 DTAP/TDAP/TD VACCINES (1 - Tdap) 2008 HEPATITIS B VACCINE (1 of 3 - 19+ 3-dose series) 2008 COVID-19 VACCINE (1 - 2023-2 5 season) 2024 INFLUENZA VACCINE (#1) 2024 DEPRESSION SCREENING 05/26/2024 ZOSTER VACCINE (1 of 2) 11/29/2039 HIB VACCINE Aged Out No longer eligi ble based on patient's age to complete this topic HPV VACCINE Aged Out No longer eligi ble based on patient's age to complete this topic MENINGOCOCCAL (Group B) VACCINE Aged Out No longer eligible based on patient's age to complete this topic MENINGOCOCCAL VACCINE Aged Out No anum claire eligible based on patient's age to complete this topic PNEUMOCOCCAL VACCINE Aged Out No long er eligible based on patient's age to complete this topic Adelaide Jauregui Personal/Famil y Self [address] [place] [address]
--- OUTSIDE RECORDS SUMMARY | 2024-08-02 00:23 | XMS_ITS | Clinical Summary ---
Author Organization [facility] [address] [place] [address] Phone Care Team Providers Care Clinical Coder Name Role Phone Unavailable Primary Care Provider Unavailabl e Social History Tobacco Use Types Packs/Day Years Used Date Smoking Tobacco: Never Assessed Comments Unknown Sex and Gender Information Value Date Recorded Sex Assigned at Not on file Legal Sex Female 4:40 PM CDT Gender Identity Not on file Sexual Orientation Not on file Plan of Treatment Health Maintenance Due Date Last Done Comments DTAP/TDAP/TD VACCINES (1 - Tdap) 2008 HEPATITIS B VACCINES (1 of 3 - 19+ 3-dose series) 2008 CERVICAL CANCER SCREENING 11/29/2019 INFLUENZA VACCINE (#1) 2023 HPV VACCINES Aged Out No longer eligi ble based on patient's age to complete this topic PNEUMOCOCCAL VACCINE 0-49 YEARS Aged Out No longer eligible based on patient's age to complete this topic Insurance [facility] [id number]
--- OUTSIDE RECORDS SUMMARY | 2024-08-02 00:23 | XMS_ITS | Patient Health Summary ---
Author Organization [facility] [employer] Address [address] [place] [address] Care Team Providers Care Dedicated Owner Operator Name Role Phone Unavailable Primary Care Provider Unavailabl e Note from [facility],non-owned Affiliates and Associated Physician Practices is amultiple site organization consisting of ambulatory clinics and hospital sitesin [place], [place], [place] and [place]. This disclosure is being madepursuant to the Care Everywhere program and may not contain all information available regarding this patient. Last updated 18.[facility] [employer] Allergies * Sulfa Drugs(Rash) -Medium Criticality Medications * Be aware that medications may not be up to date on this document. Alwaysverify current medications with the patient. * NORTREL 1/35, 28, 1-35 MG-MCG tablet(Started 06/12/2016) Social History Tobacco Use Types Packs/Day Years [...] CDT Respiratory Rate 16 06/22/2016 10:29 AM PROPERTY SUPERVISOR Oxygen Saturation - - Inhaled Oxygen Concentration - - Weight 136.1 kg (300 lb) 10/08/2016 9:01 AM CDT Height 177.8 cm (5' 10 ) 10/08/2016 9:01 AM CDT Body Mass Index 43.05 10/08/2016 9:01 AM CDT Procedures * STREP A SCREEN - POINT OF CARE (AMB) STL(Performed 10/08/2016) Performed for Strep throat * STREP A SCREEN - POINT OF CARE (AMB) STL(Performed 06/22/2016) Performed for Strep throat * STREP A SCREEN - POINT OF CARE (AMB) STL(Performed 04/02/2016) Performed for Nasopharyngitis acute Results * (ABNORMAL) STREP A SCREEN (10/08/2016 9:07 AM CDT) Only the most recent of3 resultswithin the time period is included. Strep A Rapid POCT Positive(A) Negative Strep A Internal Control Present Lot # [id number] Expiration Date 07/17/2018 Throat ENTIRE THROAT (SURFACE REGION OF NECK) / Unknown 10/08/2016 9:07 AM CDT Laura Herrera BALLING MACHINE OPERATOR-EXAMINATION SCORER LAB - [facility] CARE ORDERABLES
--- NOTE | 2024-08-02 07:05 | P.HP_ITS ---
History of Present Illness History of Present Illness Consent: Risks, benefits, and alternatives have been discussed and questions answered. Patient agrees to proceed with procedure. Chief complaint: menorrhagia Narrative: Adelaide Jauregui is a 33 year old female with heavy cycles. She has regular bleeding every month lasting for about 7 days however she goes through a tampon every hour for the 1st 2 days. It was recommended to undergo D&C hysteroscopy for further evaluation May of 2023. The patient did not follow-up with her testing or procedure. Patient returned in June stating cycles improved however they have become extremely heavy and she wishes to now proceed with workup. Risks of infection, bleeding, and perforation are reviewed. Possible pathology is discussed. Patient voices understanding and agrees to proceed. Review of Systems Review of Systems: not repeated day of surgery; patient states no changes in status PMFSH Past Medical History Medical History (Updated 08/02/24 @ 07:10 by Joanna Muñoz MD) Morbidly obese BMI 51 Otitis media PIH ( induced hypertension) Scoliosis Surgical History Surgical History H/O tubal ligation 09/11/2021 S/P tubal ligation History of 2019 & 2021 H/O knee surgery Left; orthoscopy 2007 Family History Family History Father Depression Hypertension Anxiety Alcohol abuse Grandparent Breast cancer Type 2 diabetes mellitus Lung cancer Cerebrovascular accident Social History Social History Smoking status: Never smoker Second hand tobacco smoke exposure: No Alcohol intake: current Alcohol use details: occasional wine or seltzer beverage; none in over a year as of 10/25/21 Substance use: never Lack of Transportation: No Lack of Food: Never True Current Housing: I Have Housing Concerned About Future Housing: No Difficulty Paying Gas/Electric Bills: No Difficulty Paying for Meds: No Currently Unemployed: No Education: Master's Degree or Higher Difficulty w/ Childcare or Family Care: No Living arrangements: with family Additional living arrangements comments: Spouse - Tommy Occupation/Education: occupation 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[employer] Gender identity (if verbalized by the patient): Female Sexual Orientation (if Verbalized by the Patient): Straight or Heterosexual Spiritual care concerns: No Agree to blood products: Yes Meds Home Medications and Allergies Home Medications ?Medication ?Instructions ?Recorded ?Confirmed ?Type No Home Medications 07/22/24 07/22/24 History Allergies Allergy/AdvReac Type Severity Reaction Status Date / Time Sulfa (Sulfonamide Allergy Mild HIVES Verified 07/22/24 08:55 Antibiotics) Exam Const: General: healthy appearing and alert Orientation/consciousness: patient oriented x3 Resp: Effort & Inspection: normal respiratory effort : External Female Exam: normal external appearance Speculum Exam - Vagina: normal appearance of the vagina and normal vaginal discharge Speculum Exam - Cervix: normal appearance of the cervix Bimanual exam- vagina & uterus: uterine size normal and consistency normal Bimanual Exam- Adnexa, other: normal adnexae and No adnexal tenderness Neuro: General: patient oriented x3 Assessment and Plan Assessment and plan (1) Menorrhagia: Code(s): N92.0 - Excessive and frequent menstruation with regular cycle Status: Acute Assessment and Plan: Plan to proceed with D&C hysteroscopy
--- NOTE | 2024-08-02 07:05 | WPDHPUPDATE1 ---
History and Physical Update Update Date/Time: 08/02/24 07:05 History and Physical has been reviewed, including an updated exam of the patient. There are NO changes in the patient's condition. Risks, benefits, and alternatives have been discussed and questions answered. Patient agrees to proceed with procedure.
[2024-08-02] MEDS: LACTATED RINGERS 1,000 ML 30 ML IV CONT (07:37)
[2024-08-02] MEDS: ACETAMINOPHEN 500 MG TABLET 1000 MG PO (07:40)
--- NOTE | 2024-08-02 08:03 | P.PNAN_ITS ---
Anes - Initial Pre Proc Eval Procedure: Operation Date: 08/02/24 09:00 Proposed Procedures p Hysteroscopy Dilation and Curettage - Joanna Muñoz MD Date/Time: 08/02/24 08:03 Surgeon: Joanna Muñoz MD Pre Op Diagnosis: menorrhagia Patient Data Age: 33 Gender: F Height: 1.77 m Weight: 159 kg Allergies Allergy/AdvReac Type Severity Reaction Status Date / Time Sulfa (Sulfonamide Allergy Mild HIVES Verified 07/22/24 08:55 Antibiotics) Home Medications ?Medication ?Instructions ?Recorded ?Confirmed ?Type No Home Medications 07/22/24 07/22/24 History Laboratory Tests 08/02/24 07:25 Beta HCG, Quant Pending Patient hx anesthesia problems: none Family hx anesthesia problems: none Results Review: All pre-operative results and documents have been reviewed as part of the pre- operative evaluation. [facility] Past Medical History Medical History Morbidly obese BMI 51 Otitis media PIH ( induced hypertension) Scoliosis Surgical History Surgical History H/O tubal ligation 09/11/2021 S/P tubal ligation History of 2019 & 2021 H/O knee surgery Left; orthoscopy 2007 Family History Family History Father Depression Hypertension Anxiety Alcohol abuse Grandparent Breast cancer Type 2 diabetes mellitus Lung cancer Cerebrovascular accident Social History Social History Smoking status: Never smoker Second hand tobacco smoke exposure: No Alcohol intake: current Alcohol use details: occasional wine or seltzer beverage; none in over a year as of 10/25/21 Substance use: never Lack of Transportation: No Lack of Food: Never True Current Housing: I Have Housing Concerned About Future Housing: No Difficulty Paying Gas/Electric Bills: No Difficulty Paying for Meds: No Currently Unemployed: No Education: Master's Degree or Higher Difficulty w/ Childcare or Family Care: No Living arrangements: with family Additional living arrangements comments: Spouse - Tommy Occupation/Education: occupation 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[employer] Gender identity (if verbalized by the patient): Female Sexual Orientation (if Verbalized by the Patient): Straight or Heterosexual Spiritual care concerns: No Agree to blood products: Yes Anes - Eval Final PreProcedure Day of Procedure 08/02/24 08:03 Patient weight: super morbidly obese Heart: regular rate and rhythm Lungs: clear to auscultation Airway: Mallampati scale class II Neurological: alert and oriented Last oral intake: >/= 8 hours ASA classification: III Emergent: no Anesthetic plan: proceed Anesthesia type and monitoring: general GIVS and standard monitoring Results Review: All pre-operative results and documents have been reviewed as part of the pre- operative evaluation. Informed Consent: The patient's anesthetic plan and its attendant risks and benefits were discussed with the patient/family/POA. Questions were solicited and answers provided to the satisfaction of the patient/family/POA.
[2024-08-02 08:06] LABS: Beta HCG Quantitative < 2.39 mIU/ML
[2024-08-02 08:08] VITALS: BP 148/82; PULSE 84; RESP 14; TEMP 36.3; O2SAT 98; BMI 52.0
[2024-08-02 08:13] LABS: BEDSIDEPREGUCG Negative (Negative)
--- NOTE | 2024-08-02 09:01 | SUR.OPER ---
Fluid Deficit 70
--- NOTE | 2024-08-02 09:05 | W.PM.PROC2 ---
Procedure Note - Detailed Date of Procedure 08/02/24 Pre-op Diagnosis menorrhagia Post-op Diagnosis Same Procedure Performed D And C hysteroscopy Surgeon Joanna Muñoz MD Anesthesia MAC Findings Uterus is very anteverted and sounds to 12cm. There was a polyp at the right cornua. The remainder of the endometrium appears thickened consistent with secretory state. Description of Procedure The patient was taken to the operating room and placed under anesthesia in the dorsal lithotomy position. She was prepped and draped in the usual sterile fashion. The bivalve speculum was placed vagina and the cervix grasped on the anterior lip with a tenaculum. The uterus is sounded to 8cm. The hysteroscope was placed and the fundus is noted to be anteverted. The hysteroscope at the end of the case is approximately a 90 degree angle to the floor. The small Aveta resection device is used to resect the polyp and the posterior thickened wall. The hysteroscope was removed and the sharp curette used to curette the endometrium until a good uterine cry was noted in all areas. The uterus was resounded going at the same angle as the hysteroscope and is noted to be 12cm. All instruments are removed. Sponge, needle, and instrument counts are correct per the OR staff. The patient was taken to recovery in stable condition. Estimated Blood Loss 5 Drains No Packing No Pathology Yes (Endometrial shavings and curettings) Complications No immediate complications Condition Stable Disposition PACU
[2024-08-02 09:07] VITALS: BP 142/89; PULSE 81; RESP 14; O2SAT 100
[2024-08-02 09:35] VITALS: BP 132/83; PULSE 68
[2024-08-02 10:05] VITALS: BP 127/75; PULSE 56
== END 2024-08-02 10:25 | disposition home or self-care (01) ==
PROVIDERS: Anesthesiology; PCP Clinical Nurse Specialist; Visit Provider Obstetrics & Gynecology Gynecology
PROC: 0U5B8ZZ Destruction of Endometrium, Via Natural or Artificial Opening Endoscopic (ICD-10-PCS; CPT 58563; principal; 2024-08-02 09:00)
DX: N92.0 Excessive and frequent menstruation with regular cycle (principal); N84.0 Polyp of corpus uteri; E66.01 Morbid (severe) obesity due to excess calories; Z68.43 Body mass index [BMI] 50.0-59.9, adult
CPT/HCPCS: 58558; 36415; 84702; 88305; A9270; J1885; J2003; J2250; J2405; J2704; J3010; J7120